=== PATIENT | female | born 1980 | race Caucasian/White ===

== ENCOUNTER 2023-10-23 12:53 | Emergency (ER) | payer OTHER, SELFPAY ==
[2023-10-23 12:55] VITALS: BP 149/84; PULSE 69; RESP 16; TEMP 36.3; O2SAT 100; BMI 28.6
--- NOTE | 2023-10-23 13:52 | ED.RN ---
NO OLD EKGS
[2023-10-23 13:54] VITALS: BP 111/78; PULSE 69; RESP 20; O2SAT 100
--- NOTE | 2023-10-23 14:08 | EKG12_ITS ---
Test Reason : CP Blood Pressure : / mmHG Vent. Rate : 065 BPM Atrial Rate : 065 BPM P-R Int : 158 ms QRS Dur : 074 ms QT Int : 396 ms P-R-T Axes : 064 065 053 degrees QTc Int : 411 ms Normal sinus rhythm Normal ECG Confirmed by Jason Mondragon ([id number]), editor dictionary FITO PINA ([id number]) on 10/24/2023 8:33:24 AM Referred By: Confirmed By:Jason Mondragon
--- NOTE | 2023-10-23 14:09 | RAD_ITS ---
STUDY: X-RAY CHEST REASON FOR EXAM: Female, 43 years old. Chest pain. TECHNIQUE: Single frontal view of the chest. COMPARISON: None. FINDINGS: The lungs are clear and expanded. There is no demonstrated pleural abnormality. Normal size heart. Normal mediastinum and crispin. Normal visualized pulmonary arteries. Normal visualized aortic arch and descending thoracic aorta. No abnormality of the visualized soft tissue structures of the upper abdomen. RAD/Chest 1 View (Portable) IMPRESSION: Normal x-ray examination of the chest. Electronically Signed: Nelson Dorsey MD at 14:44 EDT ,
--- NOTE | 2023-10-23 14:09 | EX.ED.DYSGE1 ---
HPI History of Present Illness Chief Complaint: Chest Pain Detail of Chief Complaint: Chest pain Informant: patient Narrative Narrative: Patient presents emergency department complaint of chest pain that started this morning involving the right upper chest that tends to radiate towards her neck. Pain sharp and stabbing at times. She also describes some chest heaviness or pressure in the right upper chest. She also describes her last 3 days early satiety and upper abdomen discomfort after eating. She has had no nausea or vomiting. Denies any fevers. Denies any blood in her stool or black tarry stool. She is not had any recent travel or surgery. She does have history of prior DVT years ago related to a foot fracture. Patient sees a synthetic department supervisor for some sleep issues and had an echocardiogram about a month ago that really was unremarkable other than some mild regurg of some of the valves. PFSH PFSH Allergy/AdvReac Type Severity Reaction Status Date / Time sulfamethoxazole (From Allergy RASH Verified 10/23/23 12:57 Bactrim) trimethoprim (From Bactrim) Allergy RASH Verified 10/23/23 12:57 Social History Smoking Status: Never smoker ROS ROS ED Review of Systems ROS Unobtainable: other Constitutional Constitutional ED: Reports lethargy; Denies chills, fever(s), sweats or weight loss Eyes Eyes: Denies blurry vision, change in vision or diplopia ENT ENT ED: Denies rhinorrhea or sore throat Cardiovascular Cardiovascular: Reports chest pain; Denies orthopnea or racing heartbeat Respiratory/Chest Respiratory/Chest: Denies cough, dyspnea, dyspnea on exertion, orthopnea or sputum Gastrointestinal Gastrointestinal: Reports abdominal pain and nausea; Denies diarrhea or vomiting Genitourinary Genitourinary ED: Denies dysuria, hematuria or urinary frequency Musculoskeletal Musculoskeletal: Denies arthralgias, back pain, myalgias or neck pain Integumentary Denies abscess, Abrasions or rash Neurologic Neurologic: Denies headache(s) or weakness Psychiatric Psychiatric: Denies anxiety, depression or suicidal thoughts Endocrine Endocrinology: Denies polydipsia, polyphagia or polyuria Hematologic/Lymphatic Hematologic/Lymphatic: Denies easy bleeding, easy bruising or lymphadenopathy Allergic/Immunologic Allergic/Immunologic ED: Denies mouth swelling, tongue swelling or urticaria EXAM Physical Exam Const Vital Signs: 10/23/23 12:54 10/23/23 12:55 10/23/23 13:54 Temperature 97.4 F L Temperature Source Temporal Pulse Rate 69 69 Respiratory Rate 16 20 H Respiratory Effort Normal Non-Labored Blood Pressure 149/84 H 111/78 Blood Pressure Mean 105 89 Pulse Ox 100 100 Oxygen Delivery Method Room Air Room Air Positive well nourished and well developed General Appearance ED: well developed and NAD HEENT Reports TM's clear and moist mucous membranes normocephalic and atraumatic; Negative for trauma or tenderness Tympanic Membrane ED: Yes TM's clear Eyes PERRL and EOMs intact bilaterally General Eye ED: Negative for pale conjunctiva or scleral icterus Neck no lymphadenopathy, supple and no JVD General: Negative for tenderness Chest Wall inspection of chest normal and palpation of chest normal Chest: Negative for tenderness Resp normal respiratory effort and clear to auscultation bilaterally Effort and Inspection: Negative for respiratory distress or pain with movement Auscultation: Negative for rhonchi, wheezes or diminished lung sounds Cardio regular rate, regular rhythm, S1 normal heart sound, S2 normal heart sound and no murmurs Peripheral Pulses: pulses 2+ throughout GI normal to inspection, nondistended, normoactive bowel sounds, soft to palpation, non-distended and no masses GI Narrative: Mild tenderness in the right upper quadrant and epigastric region. There is no rebound, rigidity, or. Signs. No mass palpated. Back/Spine no CVA tenderness and no thoracic nor lumbar tenderness Extremity normal to inspection General Extremety ED: Negative for edema General Extremity: Negative for edema Neuro oriented x3, CN's II-XII intact bilaterally, no sensory deficits noted and gait normal Sensorium / Orientation: awake, alert, oriented to person, oriented to place and oriented to time Motor Exam: strength 5/5 throughout and strength abnormal Psych mental status grossly normal Skin no rashes or lesions noted and no wounds MDM MDM MDM Narrative Medical decision making narrative: Patient presents to the emergency department with complaint of chest discomfort that she has had throughout the day today since waking up. She describes a sharp stabbing pain with some intermittent pressure that radiates to the right side of her neck. Also patient has been having early satiety after eating and some abdominal bloating. She denies any real discomfort in the abdomen or vomiting or fevers. IV line established. EKG obtained on arrival showed a sinus rhythm with ventricular rate of 65 bpm with no acute ST segment changes. CBC with differential obtained showed a white count of 5.8 with hemoglobin 12.6 and platelet count of 218. Troponin was normal at 17. LFTs were normal. Lipase normal at 21. D-dimer was normal at 0.34. Patient had a chest x-ray that showed no acute disease process. This point her heart score is a 0. Clinically I do not suspect acute coronary syndrome. I do not believe her symptoms consistent with PE. Patient also with negative D-dimer. She clinically looks well. Etiology of her swelling as well as chest discomfort and early satiety after eating unclear but may require further investigation. I do not feel she needs any emergent imaging today of her gallbladder. Her abdominal exam is benign. Recommended she follow-up with her primary care physician. Also entertain possibility of hormone disturbance such as thyroid or progesterone given her age and estrogen which could lead to some edema. Lab Data Attestation: I reviewed the patient's lab results. Labs: Laboratory Results - last 24 hr 10/23/23 13:40 WBC 5.8 RBC 4.19 L Hgb 12.6 Hct 37.2 MCV 88.8 MCH 30.1 MCHC 33.9 RDW Std Deviation 41.4 RDW Coeff of Jairo 12.7 Plt Count 218 MPV 9.3 Immature Gran % (Auto) 0.200 Neut % (Auto) 67.6 Lymph % (Auto) 24.0 Perkins % (Auto) 6.9 Eos % (Auto) 1.0 Baso % (Auto) 0.3 Absolute Neuts (auto) 3.9 Absolute Lymphs (auto) 1.39 Nucleated RBC % 0 D-Dimer Quant (PE/DVT) 0.34 Sodium 139 Potassium 3.5 Chloride 106 Carbon Dioxide 29.0 Anion Gap 4 L BUN 11 Creatinine 0.89 Estim Creat Clear Calc 86.30 Est GFR (MDRD) Af Amer 88 Est GFR (MDRD) Non-Af 73 BUN/Creatinine Ratio 12.4 Glucose 96 Calcium 8.4 L Total Bilirubin 0.80 AST 16 ALT 19 Alkaline Phosphatase 36 L Troponin I High Sens 17 Total Protein 6.7 Albumin 3.7 Globulin 3.0 Albumin/Globulin Ratio 1.2 Lipase 21 Radiography Diagnostic Testing: Clinical Impression(s) from Imaging Studies Chest X-Ray 10/23/23 14:09 IMPRESSION: Normal x-ray examination of the chest. Electronically Signed: Nelson Dorsey MD at 14:44 EDT , 1 view chest x-ray obtained interpreted by myself as no evidence of infiltrate or pneumothorax or acute disease process. Radiology in agreement. EKG Initial EKG: Attestation: I personally reviewed and interpreted this EKG as follows: Comments: Sinus rhythm with ventricular rate of 65 bpm with no acute ST segment changes Discharge Plan Triage Chief Complaint: Chest Pain ED Provider: Justin Johnson Dx/Rx/DC Orders Clinical Impression: Chest pain, Mild peripheral edema, Abdominal pain Instructions: ED Abdominal Pain Unkn Cause Fem Primary Care Provider: Price Crowder Referrals: Price Crowder DO [Primary Care Provider] - 3-5 Days Print Language: Persian Disposition Disposition: Home, Self Care
[2023-10-23] MEDS: 0.9% Normal Saline (1000mL) 1,000 ML 150 ML IV (14:22)
[2023-10-23 14:26] LABS: Absolute Lymphocyte Count 1.39 X10^3/uL (0.83-4.51); Absolute Neutrophil Count 3.9 X10^3/uL (2.0-7.7); Basophil# 0.02 X10^3/uL; Basophil% 0.3 % (0-1); Eosinophil# 0.06 X10^3/uL; Hematocrit 37.2 % (37-47); Hemoglobin 12.6 g/dL (12.0-15.0); Lymphocyte # 1.39 X10^3/ul (0.83-4.51); Mean Corp Hgb Conc 33.9 g/dL (32-36); Mean Corpuscular Hgb 30.1 pg (27.0-32.0); Mean Corpuscular Volume 88.8 fL (81-99); Mean Platelet Vol. 9.3 fl (6.2-12.0); Monocyte% 6.9 % (0-10); NRBC Flagged by Analyzer 0 % (0-5); Neutrophil # 3.92 X10^3/uL (2.7-7.7); Neutrophil % 67.6 % (47-70); Platelet Count 218 K/mm3 (150-450); RBC Distribution Width CV 12.7 % (11.6-14.6); RBC Distribution Width SD 41.4 fl (35.1-43.9); Red Blood Count 4.19 M/mm3 (4.2-5.4); White Blood Count 5.8 K/mm3 (4.4-11.0)
[2023-10-23 14:39] LABS: D-Dimer Quantitative (DVT/PE) 0.34 FEU/ug/m (0.27-0.49)
[2023-10-23 14:44] LABS: ALB/GLOB Ratio 1.2 RATIO (0.9-2.4); AST(SGOT) 16 U/L (15-37); Alanine Aminotransfer ALT/SGPT 19 U/L (13-56); Albumin, Serum 3.7 g/dL (3.2-5.0); Alkaline Phosphatase 36 U/L (45-117); Anion Gap 4 (5-15); BUN 11 mg/dL (7-18); BUN/Creat Ratio 12.4 RATIO (10-20); Calcium,Total 8.4 mg/dL (8.5-10.1); Chloride 106 mmol/L (98-107); Creatinine, Serum 0.89 mg/dL (0.55-1.02); EST Glomerular Filtration Rate 73 mL/min (>60); Est Glom Filt Rate - Afr Amer 88 mL/min (>60); Glucose 96 mg/dL (74-106); Lipase 21 U/L (13-75); Potassium 3.5 mmol/L (3.5-5.1); Protein, Total 6.7 g/dL (6.4-8.2); Sodium Level 139 mmol/L (136-145); Troponin-I HS 17 pg/mL (3.0-54.0)
[2023-10-23 15:00] VITALS: BP 120/87; PULSE 56; RESP 14; O2SAT 100
[2023-10-23 15:13] VITALS: BP 120/87; PULSE 56; RESP 14; TEMP 37.1; O2SAT 100
== END 2023-10-23 15:18 | disposition home or self-care (01) ==
PROVIDERS: Emergency Provider Emergency Medicine; PCP Family Medicine; Visit Provider Emergency Medicine
DX: R07.89 Other chest pain (principal); R10.10 Upper abdominal pain, unspecified; R60.9 Edema, unspecified
CPT/HCPCS: 71045; 80053; 83690; 84484; 85025; 85379; 93005; 99284; J7030; A4216